=== PATIENT | female | born 1975 | race Caucasian/White ===

== ENCOUNTER 2021-04-10 15:56 | Emergency (ER) | payer MEDICAID ==
[~2021-04-10] VITALS: Ht 177.8 cm; Wt 108.6 kg
[~2021-04-10 15:56] MED LIST: BACTRIM DS1 TAB PO; CIPROFLOXACN500 MG PO; CLONIDINE0.1 MG PO; CORTISPORIN OTI10 ML AS; FLOXIN OTIC0.3 % OT; HTN MED; IBUPROFEN200 MG OR; LORTAB 5 OR; LORTAB 7.57.5 MG PO; LORTAB5 OR; MOTRIN800 MG PO; MULTI VIT OR; NAPROSYN500 MG OR; NO MEDS; NORVASC5 M1 PO; ONDANSETRON4 MG PO; ULTRAM50 MG PO; ZITHROMAX250 MG PO; ZPAK OR; [UNRECOGNIZED DRUG - OTHER]; [UNRECOGNIZED DRUG - OTHER] EX
[2021-04-10 16:49] LABS: URINE BILIRUBIN - DIPSTICK NEGATIVE (NEGATIVE); URINE BLOOD DIPSTICK TRACE-INTACT (NEGATIVE); URINE COLOR YELLOW; URINE GLUCOSE - DIPSTICK NEGATIVE (NEGATIVE); URINE KETONE NEGATIVE (NEGATIVE); URINE PROTEIN - DIPSTICK NEGATIVE (NEG-TRACE); URINE SPECIFIC GRAVITY 1.015; URINE UROBILINOGEN - DIPSTICK 0.2 E.U./dL (0.2)
[2021-04-10 16:51] LABS: URINE LEUK ESTERASE SMALL (NEGATIVE); URINE NITRITE - DIPSTICK NEGATIVE (Negative)
[2021-04-10 16:59] LABS: URINE SQUAMOUS EPITHELIAL CELL MODERATE EPI/hpf (0-FEW)
[2021-04-10] MEDS ORDERED: VOLTAREN75 MG PO (18:30)
[2021-04-10 18:45] VITALS: BP 133/94
== END 2021-04-10 18:45 | disposition home or self-care (01) ==
LOC: ED 15:56
DX: S39.012A Strain of muscle, fascia and tendon of lower back, initial encounter (principal); S09.90XA Unspecified injury of head, initial encounter; T14.8XXA Other injury of unspecified body region, initial encounter; I10 Essential (primary) hypertension; F17.200 Nicotine dependence, unspecified, uncomplicated; W18.30XA Fall on same level, unspecified, initial encounter; Y92.009 Unspecified place in unspecified non-institutional (private) residence as the place of occurrence of the external cause

== ENCOUNTER 2021-12-30 14:56 | Emergency (ER) | payer MEDICAID ==
[~2021-12-30] VITALS: Ht 172.7 cm; Wt 108.9 kg
[~2021-12-30 14:56] MED LIST changes: +VOLTAREN75 MG PO
[2021-12-30 15:33] VITALS: BP 142/97
[2021-12-30] MEDS ORDERED: TESSALON PERLE100 MG PO (16:44)
[2021-12-30] MEDS ORDERED: ZPAK PO (16:44)
[2021-12-30] MEDS ORDERED: PREDNISONE50 MG PO (16:46)
== END 2021-12-30 17:05 | disposition home or self-care (01) ==
LOC: ED 14:56
DX: J06.9 Acute upper respiratory infection, unspecified (principal); I10 Essential (primary) hypertension; F17.210 Nicotine dependence, cigarettes, uncomplicated

== ENCOUNTER 2022-01-06 17:30 | Inpatient (IN) | payer MEDICAID ==
[~2022-01-06] VITALS: Ht 172.7 cm; Wt 104.0 kg
[~2022-01-06 17:30] MED LIST changes: +PREDNISONE50 MG PO; +TESSALON PERLE100 MG PO; +ZPAK PO
[2022-01-06] MEDS ORDERED: METOPROL TAR25 MG PO (20:35)
[2022-01-06] MEDS ORDERED: ZYRTEC10 MG PO (20:36)
[2022-01-06] MEDS ORDERED: NORVASC5 M1 PO (20:36)
[2022-01-06] MEDS ORDERED: OMEPRAZOLE DR40 MG PO (20:37)
[2022-01-06] MEDS ORDERED: ACETAMINOP160 MG/5 M PO (20:38)
[2022-01-06 22:30] VITALS: BP 115/73
[2022-01-06 22:45] VITALS: BP 131/78
[2022-01-06 23:00] VITALS: BP 127/82
[2022-01-06 23:15] VITALS: BP 128/95
[2022-01-06 23:29] LABS: URINE BILIRUBIN - DIPSTICK NEGATIVE (NEGATIVE); URINE BLOOD DIPSTICK SMALL (NEGATIVE); URINE COLOR YELLOW; URINE GLUCOSE - DIPSTICK NEGATIVE (NEGATIVE); URINE KETONE NEGATIVE (NEGATIVE); URINE PROTEIN - DIPSTICK NEGATIVE (NEG-TRACE); URINE UROBILINOGEN - DIPSTICK 0.2 E.U./dL (0.2)
[2022-01-06 23:30] VITALS: BP 126/89
[2022-01-06 23:34] LABS: HEMATOCRIT 43.6 % (37.0-47.0); HEMOGLOBIN 14.5 g/dl (12.0-16.0); IMMATURE GRANULOCYTES 0.4 % (0.0-5.0); MEAN CELL VOLUME 95.4 fL CALC (80.0-100.0); MEAN CORPUSCULAR HGB 31.7 pG CALC (26.0-32.0); MEAN CORPUSCULAR HGB CONC 33.3 g/dL CAL (32.0-36.0); NEUT# 12.81 thou/uL (2.00-7.15); RED BLOOD COUNT 4.57 mill/uL (4.20-5.60); RED CELL DISTRI WIDTH 14.5 % (11.5-15.5)
[2022-01-06 23:44] LABS: URINE NITRITE - DIPSTICK NEGATIVE (Negative)
[2022-01-06 23:45] VITALS: BP 128/86
[2022-01-06 23:45] LABS: URINE LEUK ESTERASE NEGATIVE (NEGATIVE)
[2022-01-06 23:48] LABS: URINE BACTERIA RARE hpf; URINE EPITHELIAL CELLS FEW EPI/hpf (0-FEW); URINE WBC 0-2 WBC/hpf (0-5)
[2022-01-06 23:59] LABS: ALBUMIN 4.3 g/dL (3.2-5.0); ALKALINE PHOSPHATASE 120 u/l (38-126); ANION GAP 12 (6-22 (CALC)); BUN 17 mg/dL (7-17); BUN/CREATININE RATIO 23 (12-20 (CALC)); CARBON DIOXIDE 28 mmol/l (22-30); CHLORIDE 104 mmol/l (95-108); CREATININE 0.7 mg/dL (0.5-1.0); GFR FOR AFR.AMER. > 60 ML/MIN (>=60 (CALC)); GFR OTHER RACES > 60 ML/MIN (>=60 (CALC)); POTASSIUM 3.5 mmol/l (3.5-5.1); SODIUM 140 mmol/l (137-146)
[2022-01-07] VITALS (11 sets, daily range): BP systolic 118–151; BP diastolic 80–97
[2022-01-07 00:04] LABS: BILIRUBIN, TOTAL 0.1 mg/dL (0.0-1.4); SGOT/AST 39 u/l (14-36)
[2022-01-07] MEDS ORDERED: ASPIRIN81 MG PO (01:34)
[2022-01-08 04:00] VITALS: BP 122/74
[2022-01-08 05:15] LABS: HEMATOCRIT 37.7 % (37.0-47.0); IMMATURE GRANULOCYTES 0.7 % (0.0-5.0); MEAN CELL VOLUME 95.7 fL CALC (80.0-100.0); MEAN CORPUSCULAR HGB 31.7 pG CALC (26.0-32.0); MEAN CORPUSCULAR HGB CONC 33.2 g/dL CAL (32.0-36.0); NEUT# 4.79 thou/uL (2.00-7.15); RED BLOOD COUNT 3.94 mill/uL (4.20-5.60); RED CELL DISTRI WIDTH 14.3 % (11.5-15.5)
[2022-01-08 05:27] LABS: HEMOGLOBIN 12.5 g/dl (12.0-16.0)
[2022-01-08 05:51] LABS: ANION GAP 8 (6-22 (CALC)); BUN 4 mg/dL (7-17); BUN/CREATININE RATIO 8 (12-20 (CALC)); CARBON DIOXIDE 25 mmol/l (22-30); CHLORIDE 109 mmol/l (95-108); CREATININE 0.5 mg/dL (0.5-1.0); GFR FOR AFR.AMER. > 60 ML/MIN (>=60 (CALC)); GFR OTHER RACES > 60 ML/MIN (>=60 (CALC)); POTASSIUM 3.7 mmol/l (3.5-5.1); SODIUM 138 mmol/l (137-146)
[2022-01-08 06:56] VITALS: BP 107/68
[2022-01-08 15:05] VITALS: BP 144/93
[2022-01-08 19:30] VITALS: BP 138/88
[2022-01-09 04:12] VITALS: BP 145/94
[2022-01-09 06:06] VITALS: BP 116/67
[2022-01-09] MEDS ORDERED: CIPROFLOXACN500 MG PO (12:09)
== END 2022-01-09 16:00 | disposition home or self-care (01) | DRG 392 ==
LOC: ED 17:30 → ED-I 01-07 01:05 → ED 01-07 01:29 → MS2 01-07 01:30
PROVIDERS: Emergency Medicine; ADMIT Surgery; ATTEND Surgery
DX: K57.20 Diverticulitis of large intestine with perforation and abscess without bleeding (principal); I10 Essential (primary) hypertension; K21.9 Gastro-esophageal reflux disease without esophagitis; F17.210 Nicotine dependence, cigarettes, uncomplicated
CPT/HCPCS: Q9967

== ENCOUNTER 2023-09-13 09:46 | Emergency (ER) | payer SELFPAY ==
[~2023-09-13] VITALS: Ht 172.7 cm; Wt 104.0 kg
[~2023-09-13 09:46] MED LIST changes: +ACETAMINOP160 MG/5 M PO; +ASPIRIN81 MG PO; +METOPROL TAR25 MG PO; +OMEPRAZOLE DR40 MG PO; +ZYRTEC10 MG PO
[2023-09-13 10:04] VITALS: BP 118/85
[2023-09-13 10:16] VITALS: BP 127/86
[2023-09-13 10:30] VITALS: BP 121/82
[2023-09-13 10:45] VITALS: BP 121/77
[2023-09-13 11:00] VITALS: BP 117/82
[2023-09-13] MEDS ORDERED: CLEOCIN300 MG PO (11:30)
== END 2023-09-13 11:40 | disposition home or self-care (01) | DRG 603 ==
LOC: ED 09:46
DX: L02.411 Cutaneous abscess of right axilla (principal); I10 Essential (primary) hypertension; F17.200 Nicotine dependence, unspecified, uncomplicated